=== PATIENT | male | born 1960 | race Caucasian/White ===

== ENCOUNTER 2017-12-01 06:14 | Day surgery (SDC) | payer BC, OTHER ==
[2017-11-30 09:35] VITALS: BMI 26.3
[2017-12-01] MEDS ORDERED: BUPIVACAINE HCL 0.25% 125 MG/50 ML VIAL ONE ×2 (07:21→08:35)
[2017-12-01] MEDS ORDERED: LIDOCAINE HCL 1%, 10 MG/ML (20ML VIAL) ONE (07:21)
[2017-12-01] MEDS ORDERED: MIDAZOLAM HCL 2 MG/2 ML SINGLE DOSE VIAL ONE (07:22)
[2017-12-01] MEDS ORDERED: BUPIVACAINE HCL/PF 0.5% (5MG/ML) 10 ML VIAL ONE (07:22)
[2017-12-01] MEDS ORDERED: PROPOFOL 20 ML ONE ×2 (07:22)
[2017-12-01] MEDS ORDERED: LIDOCAINE HCL 2% (20ML MULTI-DOSE VIAL) NR ONE (07:22)
[2017-12-01] MEDS ORDERED: LIDOCAINE 1%/EPI 1:100000 (20 ML MULTI DOSE VIAL) ONE (07:22)
[2017-12-01] MEDS ORDERED: fentaNYL CITRATE 250 MCG/5 ML VIAL ONE (07:22)
[2017-12-01] MEDS ORDERED: ceFAZolin SODIUM 1 GM VIAL ONE (07:23)
[2017-12-01] MEDS ORDERED: LIDOCAINE HCL 2% JELLY (5 ML/TUBE) ONE (07:23)
[2017-12-01] MEDS ORDERED: LIDOCAINE HCL/PF 2% SDV 5ML VIAL ONE (07:23)
[2017-12-01] MEDS ORDERED: KETOROLAC TROMETHAMINE 30 MG/1 ML VIAL ONE (07:23)
[2017-12-01] MEDS ORDERED: ONDANSETRON 4 MG/2 ML VIAL ONE (07:23)
[2017-12-01] MEDS ORDERED: DEXAMETHASONE SOD PHOSPHATE 4 MG/1 ML VIAL ONE (07:23)
[2017-12-01] MEDS ORDERED: SUCCINYLCHOLINE CHLORIDE 200 MG/10 ML VIAL ONE (07:26)
[2017-12-01] MEDS ORDERED: BUPIVACAINE HCL/PF 0.25% (2.5MG/ML) 10 ML VIAL IJ ONE (08:40)
[2017-12-01] MEDS ORDERED: oxyCODONE HCL 5 MG TABLET ONE (10:05)
[2017-12-01] MEDS ORDERED: oxyCODONE HCL 5 MG TABLET PO PRN (10:35)
[2017-12-01] MEDS ORDERED: ONDANSETRON 4 MG/2 ML VIAL IVPUSH PRN (10:35)
[2017-12-01 10:38] VITALS: PULSE 78; TEMP 98
[2017-12-01] MEDS ORDERED: LACTATED RINGERS SOLUTION 1,000 ML IV SCH (10:45)
[2017-12-01 11:21] VITALS: BP 127/74
--- NOTE | 2017-12-03 23:07 | OP ---
DATE OF OPERATION: 12/01/2017 SURGEON: Reji Gamez MD SKEIN TIER: HIPOLITO Smith PREOPERATIVE DIAGNOSIS: 1. Left elbow open debridement with lateral epicondylitis release. 2. Left elbow biceps tendon release with topaz treatment. FINDINGS: 1. Thickened scar tissue of lateral epicondyle with evidence of previous surgery and extensive scar tissue of the extensor supinator mass impingement to the lateral condyle. 2. Tenosynovitis biceps tendon with extensive scarring along the biceps aponeurosis. PROCEDURE: Informed consent was obtained. Patient was taken to the operating room and the left upper extremity was prepped and draped in the sterile fashion. Tourniquet was placed on the upper arm and inflated to 250 mmHg. Horizontal incision was made on the area of the biceps. Tendon was exposed and thickened scar tissue was debrided and removed. Pinola grid-like pattern was created using the Pinola debridement tool. Wound was irrigated with copious amounts of irrigation. Incision was made on the area of the previous lateral epicondylar release. Supinator pronator tendon scar tissue was noted to be extensive and this was removed. Inverted U-incision allowed for lifting of the central third of the tendon and the central scar tissue was removed and sent to Pathology for evaluation. Bone was scraped to create a bleeding surface. The tendon was released and reattached in a slightly lengthened position. Pinola debridement was then done diffusely across the tendon and the fascia was released using blunt tenotomy scissors. Wound was irrigated with copious amounts of irrigation. It was closed with 2-0 Vicryl and 3-0 nylon. Sterile dressing was placed. Patient was transferred to recovery. REJI GAMEZ M.D. [id number]
== END 2017-12-01 11:23 | disposition home or self-care (01) ==
LOC: FASU 06:14
PROVIDERS: ATTEND Orthopaedic Surgery
PROC: 0PBG0ZZ Excision of Left Humeral Shaft, Open Approach (ICD-10-PCS; principal; 2017-12-01 08:11)
DX: M77.11 Lateral epicondylitis, right elbow (principal); M75.22 Bicipital tendinitis, left shoulder
CPT/HCPCS: 94760